=== PATIENT | female | born 1940 | race Caucasian/White ===

== ENCOUNTER 2020-01-09 15:41 | Outpatient (CLI) | payer MEDICARE, OTHER, SELFPAY ==
--- NOTE | 2020-01-09 15:54 | XR_ITS ---
WS: [id number] SCREENING DEXA SCAN Trueffect HISTORY: 79 years old Female with POST MENOPAUSAL COMPARISON: None available. FINDINGS: The L1-L4 bone mineral density measures 1.368 g/cm2. This corresponds to a T score of 1.6 and Z score of 3.5. Left femoral neck bone mineral density measures 0.828 g/cm2. This corresponds to T score of -1.4 and Z score of 0.7. Right femoral neck bone mineral density measures 0.853 g/cm2. This corresponds to a T score of -1.2 a nd Z score of 0.9. Mean femoral neck bone mineral density measures 0.841 g/cm2. This corresponds to a T score of -1.3 an d Z score of 0.8. XR/XR DEXA axial skeleton* [id number] IMPRESSION: Patient's FRAX calculated 10 year probability for major osteoporotic fracture i s 44.4% and osteoporotic hip fracture is 30.6%.
== END 2020-01-09 15:42 | disposition home or self-care (01) ==
LOC: RADWPI 15:52
PROVIDERS: Family Provider Physician Assistant; PCP Physician Assistant; Visit Provider Physician Assistant
DX: Z78.0 Asymptomatic menopausal state (principal)
CPT/HCPCS: 77080

== ENCOUNTER 2020-05-23 09:28 | Outpatient (CLI) | payer MEDICARE, OTHER, SELFPAY ==
--- NOTE | 2020-05-23 09:36 | MM_ITS ---
WS: [id number] Exam: [id number] Date/Time of Exam: 05/23/2020 9:50 AM Reason For Exam: SCREENING VIEWS: MLO and CC views both breasts. Comparison made with prior exam of 09/06/2017. Findings: There was no sign of mass, architectural distortion or suspicious calcification in either breast. Sca ttered fibroglandular densities. MM/[place] [id number] Impression: BI-RADS: 2-Benign FOLLOW-UP: 1 Year Follow-up This mammogram was also analyzed by the Computer Aided Detection System R2 Imag e Sanitary Napkin Machine Tender.
== END 2020-05-23 09:29 | disposition home or self-care (01) ==
LOC: RADSHAW 09:32
PROVIDERS: PCP Physician Assistant; Visit Provider Physician Assistant
DX: Z12.31 Encounter for screening mammogram for malignant neoplasm of breast (principal)
CPT/HCPCS: 77067

== ENCOUNTER 2021-07-22 08:16 | Outpatient (CLI) | payer MEDICARE, OTHER, SELFPAY ==
--- NOTE | 2021-07-22 08:33 | MM_ITS ---
WS: [id number] BILATERAL SCREENING DIGITAL MAMMOGRAM WITH CAD HISTORY: Screening exam. COMPARISON: 05/23/2020 and 04/09/2019 Bilateral CC and MLO views submitted. Computer aided detection analyzed. Breast composition: There are scattered areas of fibroglandular density. No suspicious masses, microc alcifications or architectural distortion. Calcifications scattered within the LEFT breast. MM/[place] [id number] IMPRESSION: BI-RADS: 2-Benign FOLLOW UP: 1 Year Follow-up
== END 2021-07-22 08:17 | disposition home or self-care (01) ==
LOC: RADSHAW 08:23
PROVIDERS: PCP Physician Assistant; Visit Provider Physician Assistant
DX: Z12.31 Encounter for screening mammogram for malignant neoplasm of breast (principal)
CPT/HCPCS: 77067

== ENCOUNTER 2021-09-24 11:30 | Emergency (ER) | payer MEDICARE, OTHER, SELFPAY ==
--- NOTE | 2021-09-24 11:32 | CT_ITS ---
WS: [id number] CT HEAD TECHNIQUE: Noncontrast CT of the head obtained from the skullbase to the vertex. CLINICAL INFORMATION: fall, headstrike, dizzy COMPARISON: None. DLP: 823.[address] scans at [facility] use at least one of these dose optimization techniques: automated e xposure control; mA and/or kV adjustment per patient size (includes targeted exams where dose is matc hed to clinical indication); or iterative reconstruction. FINDINGS: No evidence of intracranial hemorrhage or mass effect. Ventricular system and basal cisterns are seymour nt. Mild small vessel changes with moderate parenchymal volume loss. Cavernous carotid calcification. Benign basal ganglia calcifications. No extra-axial fluid collections. No evidence of mass or mass e ffect. Mild mucosal thickening mastoid air cells. Mastoid air cells are well aerated.. Prominent contusion w ith scalp edema. No underlying calvarial fractures. CT/CT head wo con* [id number] IMPRESSION: 1. No evidence of intracranial hemorrhage or mass effect. 2. Moderate small vessel changes with moderate parenchymal volume loss. 3. Prominent parietal scalp hematoma at the vertex. No underlying calvarial fr actures. 4. No acute intracranial findings.
--- NOTE | 2021-09-24 11:32 | CT_ITS ---
WS: [email or web address] CT CERVICAL TRAUMA TECHNIQUE: Noncontrast CT of the cervical spine with coronal and sagittal reformatted images. CLINICAL INFORMATION: fall, headstrike COMPARISON: None. DLP: 415.[address] scans at [facility] use at least one of these dose optimization techniques: automated e xposure control; mA and/or kV adjustment per patient size (includes targeted exams where dose is matc hed to clinical indication); or iterative reconstruction. FINDINGS: Straightening of the normal cervical lordosis. Cervical curve convex LEFT. Moderate spondylitic grant es. Slight anterolisthesis C4 on C5. Disc space narrowing worse at C4-C5 C5-C6 and C6-C7. Nomal crani ocervical junction. Normal C1-C2 articulation. Dens is normal in appearance. Normal occipital condyle s. No high-grade spinal canal narrowing. Normal C1 ring. No evidence of acute fracture or dislocation . Normal prevertebral soft tissues. Mastoids air cells are well aerated. CT/CT cervical spin wo con* [id number] IMPRESSION: No evidence of acute fracture or dislocation.
--- NOTE | 2021-09-24 11:32 | XR_ITS ---
WS: [id number] Portable AP upright chest, 09/24/2021 Clinical Data: dizzy Comparison: PA and lateral chest, 10/15/2017. Findings: No nodules, masses or effusions are seen. The heart is slightly enlarged. The pulmonary vas cularity is not increased. No pneumonia or pneumothorax is seen. The aortic arch and descending thora cic aorta show calcification and tortuosity. There is a hiatal hernia behind the heart. There are cli ps in the right upper quadrant from a cholecystectomy. XR/XR chest 1V portable [id number] Impression: Cardiomegaly and atherosclerosis.
--- NOTE | 2021-09-24 11:33 | ECG_ITS ---
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 Measurements Intervals [place] Rate: 66 P: 32 CO: 148 QRS: -21 QRSD: 82 T: -36 QT: 385 QTc: 406 Interpretive Statements SINUS RHYTHM LEFT VENTRICULAR HYPERTROPHY AND ST-T CHANGE [VOLTAGE CRITERIA PLUS ST/T ABNORMALITY] POSSIBLE ANTERIOR MYOCARDIAL INFARCTION , OF INDETERMINATE AGE [30 ms Q WAVE IN V3/V4, OR R < 0.2 mV IN V4] Compared to ECG 10/15/2017 10:33:49 Left ventricular hypertrophy now present ST (T wave) deviation now present Myocardial infarct finding now present T-wave abnormality no longer present Electronically Signed On 09-24-2021 17:45:52 CHIEF PASSENGER SHIP STEWARD/STEWARDESS by Rey Woo M.D. [id number]
--- NOTE | 2021-09-24 11:42 | ED_ITS ---
HPI - Fall General: Chief Complaint: Fall Stated Complaint: DIZZY, FALL, HIT HEAD ON FLOOR Time Seen by Provider: 09/24/21 11:31 History of Present Illness: Ms Lucio is an 81-year-old lady with history of PCI, hypertension, hyperlipidemia who presents emergency department due to fall. She reports being at her baseline health the past few days without significant changes. She endorses a history of frequent falls secondary to balance issues and was at the bank today. She turned and fell backwards after losing her balance and struck her head. She denies loss of consciousness. She denies preceding chest pain, shortness of breath, dizziness, lightheadedness. She was able to ambulate after the event. Intensity of musculoskeletal pain is mild. No specific exacerbating or relieving factors. No other changes in health or medication. Onset (ago): minute(s) Fall from: standing Fall witnessed: yes, by bystander Place fall occurred: other Loss of consciousness: None Symptoms prior to fall: none Context: history of frequent falls and other Location of injury: head Quality: aching Review of Systems General: Reports: 10 or more systems reviewed and unremarkable except in HPI and below PFSH ED PFSH: Medical History (Updated 10/02/21 @ 00:01 by ) ASHD (arteriosclerotic heart disease) DVT (deep venous thrombosis) Dyslipidemia HTN (hypertension) Myocardial infarction Statin intolerance Surgical History S/P PTCA (percutaneous transluminal coronary angioplasty) Family History Sister CAD (coronary artery disease) Cancer LUNG Diabetes Mother Diabetes Social History Smoking and tobacco status: never smoked Physical Exam Const: COMMON NORMALS: alert GENERAL APPEARANCE: cooperative and well developed HENMT: COMMON NORMALS: normocephalic HEAD & SCALP: normocephalic THROAT: posterior oropharynx normal OTHER: contusion to occiput without laceration or bleeding. No bony deformity to face. No bowen signs or raccoon eyes. Jaw alignment normal. No septal hematoma. Eye: COMMON NORMALS: conjunctivae normal CONJUNCTIVA: Yes conjunctivae normal SCLERA: sclerae normal Neck/C-Spine: COMMON NORMALS: supple GENERAL: Yes trachea midline Resp: COMMON NORMALS: normal respiratory effort and clear to auscultation bilaterally EFFORT & INSPECTION: Yes able to speak in complete sentences AUSCULTATION: clear to auscultation bilaterally Cardio: COMMON NORMALS: regular rate and regular rhythm RATE: regular rate RHYTHM: regular rhythm GI: COMMON NORMALS: Soft to palpation PALPATION: Yes Soft to palpation and No Tenderness to palpation present (GI) PERCUSSION: normal to percussion Extremity: GENERAL: Yes normal exam except as noted and No edema Neuro: COMMON NORMALS: moves all extremities SENSORIUM/ORIENTATION: Yes alert and No Orientation impaired Psych: COMMON NORMALS: mental status grossly normal and Normal thought process present THOUGHT PROCESS: Normal thought process present Course ED course: - Patient was seen and evaluated by me at bedside - Patient placed on cardiac monitors, IV access obtained - Initial evaluation notable for exam as above. Head to toe exam performed. - Labs notable for no acute hematologic or metabolic abnormality to explain ro nts. - Imaging notable for no evidence of acute traumatic injury from fall requiring intervention - Upon serial reexamination after treatment the patient was improved with analgesia - Based on patient history, evaluation, labs, and imaging as interpreted the most likely cause of the patient's condition is fall with head injury - The results of ED evaluation were discussed with the patient including prescriptions and/or symptomatic cares (if applicable) including appropriate and responsible use, followup plan, and return precautions. The patient verbalized understanding and felt safe for discharge. - Patient discharged in satisfactory condition. Note: Click bubbles or prepopulated cisneros in note writing are used for assistance with data collection and billing and are inherently more limited than narrative and other text portions of this note. Please use narrative for additional clin ical history and defer to narrative/free test for any case of contradictory information. If information appears in only free text or click bubble it should be considered present or absent as reported. Please contact note mortgage or loan underwriter for clarifications of clinical information or contradictory information. MDM is a brief summary, contradictory or erroneous seeming information should be clarified and full note should be reviewed. Vital Signs: Vital signs: Vital Signs Temperature 98.3 F 09/24/21 11:43 Pulse Rate 60 09/24/21 15:22 Respiratory Rate 16 09/24/21 15:22 Blood Pressure 121/63 09/24/21 15:22 Pulse Oximetry 94 09/24/21 15:22 MDM - Fall Medical Decision Making 81-year-old lady presenting to the emergency due to fall with head strike. Patient does have scalp hematoma but no other traumatic injury identified. Satisfactory for outpatient management. Medical Records I reviewed the patient's medical records. Lab Data I reviewed the patient's lab results. : 09/24/21 11:50 09/24/21 11:50 Radiology Impressions Cervical Spine CT 09/24/21 11:32 IMPRESSION: No evidence of acute fracture or dislocation. Chest X-Ray 09/24/21 11:32 Impression: Cardiomegaly and atherosclerosis. Head CT 09/24/21 11:32 IMPRESSION: 1. No evidence of intracranial hemorrhage or mass effect. 2. Moderate small vessel changes with moderate parenchymal volume loss. 3. Prominent parietal scalp hematoma at the vertex. No underlying calvarial fractures. 4. No acute intracranial findings. Laboratory Results WBC 5.5 10^3/uL (4.0-10.0) 09/24/21 11:50 RBC 3.46 10^6/uL (4.1-5.3) L 09/24/21 11:50 Hgb 11.5 g/dL (11.5-15.3) 09/24/21 11:50 Hct 35.5 % (37.0-47.0) L 09/24/21 11:50 MCV 102.6 fl (81-99) H 09/24/21 11:50 MCH 33.2 pg (28.0-34.0) 09/24/21 11:50 MCHC 32.4 g/dL (30.0-36.0) 09/24/21 11:50 RDW 12.1 % (12.1-15.1) 09/24/21 11:50 Plt Count 257 10^3/cmm (130-400) 09/24/21 11:50 MPV 10.2 fL (7.4-10.4) 09/24/21 11:50 Neut % (Auto) 57.3 % 09/24/21 11:50 Lymph % (Auto) 28.8 % 09/24/21 11:50 Vance % (Auto) 10.2 % 09/24/21 11:50 Eos % (Auto) 2.2 % 09/24/21 11:50 Baso % (Auto) 1.1 % 09/24/21 11:50 Neut # (Auto) 3.14 10^3/uL (1.8-7.7) 09/24/21 11:50 Lymph # (Auto) 1.6 10^3/uL (0.8-4.8) 09/24/21 11:50 Vance # (Auto) 0.6 10^3/uL (0.2-0.9) 09/24/21 11:50 Eos # (Auto) 0.1 10^3/uL (0.0-0.8) 09/24/21 11:50 Baso # (Auto) 0.1 10^3/uL (0.0-0.1) 09/24/21 11:50 Nucleated RBC % (auto) 0 % 09/24/21 11:50 Nucleated RBCs # 0.0 /100WBC 09/24/21 11:50 Sodium 135 mmol/L (136-145) L 09/24/21 11:50 Potassium 4.3 mmol/L (3.5-5.1) 09/24/21 11:50 Chloride 100 mmol/L (98-107) 09/24/21 11:50 Carbon Dioxide 24 mmol/L (22-29) 09/24/21 11:50 Anion Gap 15.3 (5-19) 09/24/21 11:50 BUN 30 mg/dL (8-23) H 09/24/21 11:50 Creatinine 0.9 mg/dL (0.5-0.9) 09/24/21 11:50 GFR Calculation Not Reportable 09/24/21 11:50 Glucose 143 mg/dL (65-115) H 09/24/21 11:50 Calculated Osmolality 289 mOsm/kg (285-295) 09/24/21 11:50 Calcium 8.5 mg/dL (8.5-10.5) 09/24/21 11:50 Total Bilirubin 0.4 mg/dL (0.15-1.2) 09/24/21 11:50 AST 15 U/L (0-32) 09/24/21 11:50 ALT 13 U/L (0-33) 09/24/21 11:50 Alkaline Phosphatase 73 IU/L (35-105) 09/24/21 11:50 Troponin T Baseline 18 ng/L (0-10) H 09/24/21 11:50 Troponin T 120 Minute 16.03 ng/L (0-10) H 09/24/21 13:36 Delta Troponin T -1.97 ABS# (0-10) L 09/24/21 13:36 Total Protein 6.5 g/dL (6.6-8.7) L 09/24/21 11:50 Albumin 4.5 g/dL (3.5-5.2) 09/24/21 11:50 Globulin 2.0 g/dL (1.3-4.6) 09/24/21 11:50 TSH 0.64 uIU/mL (0.27-4.20) 09/24/21 11:50 Urine Color Yellow (Yellow) 09/24/21 14:19 Urine Appearance Clear (CLEAR) 09/24/21 14:19 Urine pH 5 (5-7) 09/24/21 14:19 Ur Specific [place] 1.015 (1.005-1.030) 09/24/21 14:19 Urine Protein Neg (Negative) 09/24/21 14:19 Urine Glucose (UA) Norm (Normal) 09/24/21 14:19 Urine Ketones Negative (Negative) 09/24/21 14:19 Urine Blood Neg (Negative) 09/24/21 14:19 Urine Nitrate Negative (Negative) 09/24/21 14:19 Urine Bilirubin Neg (Negative) 09/24/21 14:19 Urine Urobilinogen Norm mg/dL (Negative) 09/24/21 14:19 Ur Leukocyte Esterase 1+ (Negative) H 09/24/21 14:19 Urine RBC Rare /hpf (0-2) 09/24/21 14:19 Urine WBC 5-10 /hpf (0-5) H 09/24/21 14:19 Ur Squamous Epith Cells None /hpf (0-5) 09/24/21 14:19 Amorphous Sediment Not Reportable 09/24/21 14:19 Urine Bacteria Trace /hpf (NONE) 09/24/21 14:19 EKG Data EKG 1: Interpretation: Twelve-lead EKG shows a regular rhythm at a rate of 66. IA interval 148, QRS duration 82, QTc 399. Left axis deviation. Interpretation: Sinus rhythm. Nonspecific ST segment abnormalities. EKG 2: I personally reviewed and interpreted this EKG as follows: EKG interpretation date: 09/24/21 EKG interpretation time: 13:32 Interpretation: Twelve-lead EKG shows a regular rhythm at a rate of 53. IA interval 155. QRS duration 84. QTc 397. Left [place] deviation. Interpretation: Sinus rhythm. Bradycardia. Nonspecific ST segment abnormalities. Discharge Plan Discharge Patient Disposition: Home Clinical Impression: Fall, Hematoma of scalp Condition: Stable Prescriptions: No Action metoprolol tartrate 25 mg tablet 25 mg PO BID 0RF isosorbide mononitrate 30 mg tablet extended release 24 hr 30 mg PO DAILY 0RF levothyroxine 25 mcg capsule 25 mcg PO DAILY 0RF simvastatin 20 mg tablet 20 mg PO DAILY 0RF lisinopril 10 mg tablet 10 mg PO DAILY 0RF ipratropium-albuterol 0.5 mg-3 mg(2.5 mg base)/3 mL solution for nebulization 3 ml INHALATION QID PRN0RF aspirin [Aspir-81] 81 mg tablet,delayed release (DR/EC) 81 mg PO DAILY 0RF fluticasone propionate 50 mcg/actuation spray,suspension 1 spray INTRANASAL BID 0RF sertraline 50 mg tablet 50 mg PO DAILY 0RF Caltrate 600 plus D 600 mg (1,500 mg)-800 unit tablet,chewable 1 tab PO DAILY PRN0RF gabapentin 300 mg capsule 600 mg PO BID 0RF pantoprazole 40 mg tablet,delayed release (DR/EC) 40 mg PO DAILY PRN0RF acetaminophen 325 mg tablet 325 mg PO BID PRN0RF Lactobacillus acidophilus [Acidophilus] Capsule 1,000 mmu cells PO DAILY 0RF cetirizine [Allergy Relief (cetirizine)] 10 mg tablet 10 mg PO DAILY 0RF Discharge Orders: Discharge ED (Routine); Ordered 09/24/21 Ordered By: Reginald Riggs Referrals: Araceli Squires PA [Primary Care Provider] - Discharge Diet: Usual diet Discharge Activity: Resume usual activity Patient Instructions: Fall Prevention (ED), Hematoma (ED) Activity Restrictions/Additional Instructions: Thank you for visiting the emergency department. You were seen and evaluated for fall. You were found to have a hematoma under your scalp but no other acute traumatic injuries. You may use [id number] medications for discomfort however please do not exceed the daily recommended dosage. Please follow-up with your primary care provider. Please return to the emergency department for worsening symptoms, uncontrolled pain, any new neurologic deficits, recurrent falls, or anything else that you are concerned about and feel needs emergency department evaluation. Coding Level of Care Code ED Retail Worker for Chg Fwd Exam Comprehensive
[2021-09-24 11:43] VITALS: BP 146/73; PULSE 70; RESP 16; TEMP 36.8; O2SAT 92; BMI 29.7
[2021-09-24 11:56] LABS: Basophils # 0.1 10^3/uL (0.0-0.1); Basophils % 1.1 %; Eosinophils # 0.1 10^3/uL (0.0-0.8); Eosinophils % 2.2 %; Hematocrit 35.5 % (37.0-47.0); Hemoglobin 11.5 g/dL (11.5-15.3); Lymphocytes # 1.6 10^3/uL (0.8-4.8); Lymphocytes % 28.8 %; Mean Corpuscular HGB Conc 32.4 g/dL (30.0-36.0); Mean Corpuscular Hemoglobin 33.2 pg (28.0-34.0); Mean Corpuscular Volume 102.6 fl (81-99); Mean Platelet Volume 10.2 fL (7.4-10.4); Monocytes # 0.6 10^3/uL (0.2-0.9); Monocytes % 10.2 %; Neutrophils # 3.14 10^3/uL (1.8-7.7); Neutrophils % 57.3 %; Nucleated Red Blood Cells % 0 %; Platelet Count 257 10^3/cmm (130-400); Red Blood Count 3.46 10^6/uL (4.1-5.3); Red Cell Distribution Width 12.1 % (12.1-15.1); White Blood Count 5.5 10^3/uL (4.0-10.0)
[2021-09-24 12:35] LABS: Troponin(5th) Baseline 18 ng/L (0-10)
[2021-09-24 12:42] LABS: Alanine Aminotransferase 13 U/L (0-33); Albumin Level 4.5 g/dL (3.5-5.2); Alkaline Phosphatase 73 IU/L (35-105); Anion Gap 15.3 (5-19); Aspartate Amino Transferase 15 U/L (0-32); Blood Urea Nitrogen 30 mg/dL (8-23); Calcium 8.5 mg/dL (8.5-10.5); Carbon Dioxide 24 mmol/L (22-29); Chloride 100 mmol/L (98-107); Glucose 143 mg/dL (65-115); Osmolality Calculated 289 mOsm/kg (285-295); Potassium 4.3 mmol/L (3.5-5.1); Sodium 135 mmol/L (136-145); Thyroid Stimulating Hormone 0.64 uIU/mL (0.27-4.20); Total Bilirubin 0.4 mg/dL (0.15-1.2); Total Protein 6.5 g/dL (6.6-8.7)
[2021-09-24] MEDS: ketorolac 30 mg/mL INJ 15 MG IVP (12:54)
[2021-09-24] MEDS: acetaminophen 325 mg Tablet 650 MG PO (12:55)
[2021-09-24 12:57] VITALS: BP 119/87; BP 129/68; BP 129/72; PULSE 60; PULSE 69
[2021-09-24 13:01] VITALS: BP 119/87; PULSE 61; RESP 16; O2SAT 97
--- NOTE | 2021-09-24 13:33 | ECG_ITS ---
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 Measurements Intervals [place] Rate: 53 P: 48 MS: 155 QRS: -16 QRSD: 84 T: -45 QT: 413 QTc: 391 Interpretive Statements SINUS BRADYCARDIA LOW QRS VOLTAGE IN PRECORDIAL LEADS [QRS DEFLECTION < 1.0 mV IN CHEST LEADS] MINIMAL VOLTAGE CRITERIA FOR LVH, CONSIDER NORMAL VARIANT [MEETS CRITERIA IN ONE OF: R(aVL), S(V1), R(V5), R(V5/V6)+S(V1)] ST DEVIATION AND MODERATE T-WAVE ABNORMALITY, CONSIDER ANTEROLATERAL ISCHEMIA [-0.1+ mV T-WAVE IN V3-V6] ST DEVIATION AND MODERATE T-WAVE ABNORMALITY, CONSIDER INFERIOR ISCHEMIA [-0.1+ mV T-WAVE IN II/aVF] Compared to ECG 09/24/2021 12:33:00 Low QRS voltage now present .T-wave abnormality now present. Possible ischemia now present sinus rhythm no longer present ST (T wave) deviation no longer present Myocardial infarct finding no longer present Electronically Signed On 09-24-2021 17:51:11 GENERAL COUNSEL by Rey Woo M.D. [email or web address]
[2021-09-24 14:03] LABS: Troponin 5 2HR 16.03 ng/L (0-10)
[2021-09-24 14:19] LABS: Troponin 5 2HR Delta -1.97 ABS# (0-10)
[2021-09-24 14:53] LABS: Add Urine Microscopic? YES; Bacteria Urine TRACE /hpf; Bilirubin Urine Neg (Negative); Blood Urine Neg (Negative); Glucose Urine UA Norm (Normal); Ketones Urine Negative (Negative); Leukocyte Esterase Urine 1+ (Negative); Nitrate Urine Negative (Negative); Protein Urine Neg (Negative); RBC Urine RARE /hpf (0-2); Specific Gravity, Urine 1.015 (1.005-1.030); Urine Appearance Clear (CLEAR); Urine Color Yellow (Yellow); Urobilinogen Urine Norm (Negative); pH Urine 5 (5-7)
[2021-09-24 15:22] VITALS: BP 121/63; PULSE 60; RESP 16; O2SAT 94
== END 2021-09-24 15:24 | disposition home or self-care (01) ==
PROVIDERS: Emergency Provider Emergency Medicine; PCP Physician Assistant
DX: S00.03XA Contusion of scalp, initial encounter (principal); W18.30XA Fall on same level, unspecified, initial encounter; Y92.510 Bank as the place of occurrence of the external cause; E78.5 Hyperlipidemia, unspecified; I10 Essential (primary) hypertension; I25.2 Old myocardial infarction
CPT/HCPCS: 70450; 71045; 72125; 80053; 81001; 84443; 84484; 85025; 93005; 96374; 99284; J1885

== ENCOUNTER → 2021-12-11 09:47 | Outpatient (BNVA) | payer MEDICARE, OTHER, SELFPAY | PROVIDERS: PCP Physician Assistant; Visit Provider Internal Medicine | DX: I82.409 Acute embolism and thrombosis of unspecified deep veins of unspecified lower extremity (principal); I10 Essential (primary) hypertension; I25.10 Atherosclerotic heart disease of native coronary artery without angina pectoris; E78.5 Hyperlipidemia, unspecified; I25.2 Old myocardial infarction; Z87.891 Personal history of nicotine dependence | CPT/HCPCS: 99213; 99214 ==

== ENCOUNTER → 2022-06-04 09:32 | Outpatient (BNVA) | payer MEDICARE, OTHER, SELFPAY | PROVIDERS: PCP Physician Assistant; Visit Provider Internal Medicine Cardiovascular Disease | DX: I25.10 Atherosclerotic heart disease of native coronary artery without angina pectoris (principal); Z78.9 Other specified health status; I10 Essential (primary) hypertension; I82.409 Acute embolism and thrombosis of unspecified deep veins of unspecified lower extremity; E78.5 Hyperlipidemia, unspecified; Z98.61 Coronary angioplasty status; I25.2 Old myocardial infarction; Z87.891 Personal history of nicotine dependence | CPT/HCPCS: 99213; 99214 ==

== ENCOUNTER 2022-07-30 11:24 | Outpatient (CLI) | payer MEDICARE, OTHER, SELFPAY ==
--- NOTE | 2022-07-30 11:45 | MM_ITS ---
WS: [id number] Bilateral screening 3D tomosynthesis digital mammogram, 07/30/2022 Clinical Data: SCREENING Comparison: 07/22/2021, 05/23/2020, 04/09/2019, 10/18/2018, 09/18/2018, 09/06/2017, 07/12/2016, 5, 06/18/2014, 05/28/2013, 06/12/2012, 05/22/2012, 04/19/2011, 04/15/2010, 04/15/2009, 04/08/2008, 04/07/20 07. Findings: The breast parenchymal pattern shows fibroglandular tissue. No spiculated masses or clustered calcifi cations are seen. There are no secondary signs of carcinoma. MM/[place] [id number] Impression: 1. Negative bilateral mammogram unchanged. 2. Recommend annual screening mammograms. BIRADS: 1-Negative FOLLOW UP: 1 Year Follow-up The CAD drawing checker was used.
== END 2022-07-30 11:25 | disposition home or self-care (01) ==
LOC: RAD 11:27
PROVIDERS: PCP Physician Assistant; Visit Provider Physician Assistant
DX: Z12.31 Encounter for screening mammogram for malignant neoplasm of breast (principal)
CPT/HCPCS: 77063; 77067

== ENCOUNTER → 2022-12-17 09:37 | Outpatient (BNVA) | payer MEDICARE, OTHER, SELFPAY | PROVIDERS: PCP Physician Assistant; Visit Provider Internal Medicine | DX: I10 Essential (primary) hypertension (principal); E78.5 Hyperlipidemia, unspecified; I25.10 Atherosclerotic heart disease of native coronary artery without angina pectoris; I25.2 Old myocardial infarction | CPT/HCPCS: 99214 ==

== ENCOUNTER 2023-08-26 10:10 | Outpatient (CLI) | payer MEDICARE, OTHER, SELFPAY ==
--- NOTE | 2023-08-26 10:18 | MM_ITS ---
WS: [id number] BILATERAL SCREENING DIGITAL TOMOSYNTHESIS MAMMOGRAM WITH CAD HISTORY: SCREENING COMPARISON: 07/30/2022 and 07/22/2021 Bilateral CC and MLO views with tomosynthesis and synthetic mammography submitted. Computer aided det ection analyzed. Breast composition: There are scattered areas of fibroglandular density. No suspicious masses, microc alcifications or architectural distortion. Benign calcifications within each breast. Previously descr ibed asymmetry in the RIGHT breast is stable over multiple years. IMPRESSION: MM/[place] [id number] BI-RADS: 2-Benign FOLLOW UP: 1 Year Follow-up
== END 2023-08-26 10:11 | disposition home or self-care (01) ==
LOC: RAD 10:11
PROVIDERS: PCP Physician Assistant; Visit Provider Physician Assistant
DX: Z12.31 Encounter for screening mammogram for malignant neoplasm of breast (principal); R92.323 Mammographic fibroglandular density, bilateral breasts; R92.1 Mammographic calcification found on diagnostic imaging of breast; N64.89 Other specified disorders of breast
CPT/HCPCS: 77063; 77067

== ENCOUNTER → 2023-12-16 08:53 | Outpatient (BNVA) | payer MEDICARE, OTHER, SELFPAY | PROVIDERS: PCP Physician Assistant; Visit Provider Nurse Practitioner Family | DX: I25.10 Atherosclerotic heart disease of native coronary artery without angina pectoris (principal); I10 Essential (primary) hypertension; Z87.891 Personal history of nicotine dependence | CPT/HCPCS: 99214 ==

== ENCOUNTER → 2023-12-29 08:32 | Outpatient (BNVA) | payer MEDICARE, OTHER, SELFPAY | PROVIDERS: PCP Physician Assistant; Visit Provider Podiatrist Foot & Ankle Surgery | DX: L60.0 Ingrowing nail (principal); B35.1 Tinea unguium | CPT/HCPCS: 99203 ==

== ENCOUNTER → 2024-07-06 08:12 | Outpatient (BNVA) | payer MEDICARE, OTHER, SELFPAY | PROVIDERS: PCP Physician Assistant; Visit Provider Podiatrist Foot & Ankle Surgery | DX: B35.1 Tinea unguium (principal); G62.9 Polyneuropathy, unspecified; I73.9 Peripheral vascular disease, unspecified; Z86.718 Personal history of other venous thrombosis and embolism | CPT/HCPCS: 11721 ==

== ENCOUNTER 2024-09-17 13:03 | Outpatient (CLI) | payer MEDICARE, OTHER, SELFPAY ==
--- NOTE | 2024-09-17 13:07 | MM_ITS ---
WS: [email or web address] BILATERAL 3D TOMOSYNTHESIS DIGITAL SCREENING MAMMOGRAPHY WITH CAD CLINICAL INFORMATION: SCREENING HISTORY: Screening mammogram. No current complaints. COMPARISON: 2023 TECHNIQUE: Bilateral CC and MLO views. FINDINGS: Scattered fibroglandular densities bilaterally. No suspicious focal mass, asymmetry, calcifications, or architectural distortion. No evidence of malignancy. Lucent centered calcifications. Nodular asymmetries RIGHT breast are unchanged. Vascular calcification. MM/MM scr tomosynthesis [id number] IMPRESSION: DENSITY: There are scattered areas of fibroglandular density. BI-RADS: 2 - Benign. FOLLOW UP: 1 Year Follow-up Recommend return to annual screening mammography.
== END 2024-09-17 13:04 | disposition home or self-care (01) ==
LOC: RAD 13:04
PROVIDERS: PCP Physician Assistant; Visit Provider Physician Assistant
DX: Z12.31 Encounter for screening mammogram for malignant neoplasm of breast (principal); R92.323 Mammographic fibroglandular density, bilateral breasts; R92.1 Mammographic calcification found on diagnostic imaging of breast; N64.89 Other specified disorders of breast
CPT/HCPCS: 77063; 77067

== ENCOUNTER → 2024-10-04 07:55 | Outpatient (BNVA) | payer MEDICARE, OTHER, SELFPAY | PROVIDERS: PCP Physician Assistant; Visit Provider Podiatrist Foot & Ankle Surgery | DX: I73.9 Peripheral vascular disease, unspecified (principal); B35.1 Tinea unguium; L84 Corns and callosities; G62.9 Polyneuropathy, unspecified; Z86.718 Personal history of other venous thrombosis and embolism | CPT/HCPCS: 11056; 11721 ==

== ENCOUNTER → 2024-10-30 08:23 | Outpatient (BNVA) | payer MEDICARE, OTHER, SELFPAY | PROVIDERS: PCP Physician Assistant; Visit Provider Podiatrist Foot & Ankle Surgery | DX: L60.0 Ingrowing nail (principal); B35.1 Tinea unguium; G62.9 Polyneuropathy, unspecified; I73.9 Peripheral vascular disease, unspecified | CPT/HCPCS: 99213 ==

== ENCOUNTER → 2024-11-29 12:30 | Outpatient (BNVA) | payer MEDICARE, OTHER, SELFPAY | PROVIDERS: PCP Physician Assistant; Visit Provider Internal Medicine | DX: I10 Essential (primary) hypertension (principal); E78.5 Hyperlipidemia, unspecified; I25.10 Atherosclerotic heart disease of native coronary artery without angina pectoris; I25.2 Old myocardial infarction; Z86.718 Personal history of other venous thrombosis and embolism | CPT/HCPCS: 99214 ==

== ENCOUNTER → 2024-12-06 07:56 | Outpatient (BNVA) | payer MEDICARE, OTHER, SELFPAY | PROVIDERS: PCP Physician Assistant; Visit Provider Podiatrist Foot & Ankle Surgery | DX: I73.9 Peripheral vascular disease, unspecified (principal); B35.1 Tinea unguium; L84 Corns and callosities; G62.9 Polyneuropathy, unspecified; M20.41 Other hammer toe(s) (acquired), right foot | CPT/HCPCS: 11056; 11721; 99213 ==

== ENCOUNTER → 2025-02-07 08:23 | Outpatient (BNVA) | payer MEDICARE, OTHER, SELFPAY | PROVIDERS: PCP Physician Assistant; Visit Provider Podiatrist Foot & Ankle Surgery | DX: I73.9 Peripheral vascular disease, unspecified (principal); B35.1 Tinea unguium; G62.9 Polyneuropathy, unspecified; M20.41 Other hammer toe(s) (acquired), right foot | CPT/HCPCS: 11721 ==

== ENCOUNTER → 2025-04-18 07:45 | Outpatient (BNVA) | payer MEDICARE, OTHER, SELFPAY | PROVIDERS: PCP Physician Assistant; Visit Provider Podiatrist Foot & Ankle Surgery | DX: I73.9 Peripheral vascular disease, unspecified (principal); B35.1 Tinea unguium; L84 Corns and callosities; L60.8 Other nail disorders; G62.9 Polyneuropathy, unspecified; M20.41 Other hammer toe(s) (acquired), right foot | CPT/HCPCS: 11055; 11721 ==